=== PATIENT | female | born 1970 | race African-American/Black ===

== ENCOUNTER 2017-10-25 09:49 | Emergency (ER) | payer SELFPAY ==
[~2017-10-25] VITALS: Ht 154.9 cm; Wt 52.2 kg
--- NOTE | 2017-10-25 10:22 | NUR ---
A/OX4, C/O LOWER BACK PAIN, RADIATING TO ABDOMEN X 5 DAYS. NO TARUMA. VSS RR EVEN AND UNLABORED. PENDING ER MD HULL
[2017-10-25] MEDS ORDERED: IBUPROFEN 400 MG TABLET ONE (10:30)
[2017-10-25] MEDS ORDERED: IBUPROFEN 400 MG TABLET PO ONE (10:30)
[2017-10-25 13:14] VITALS: BP 147/85
--- NOTE | 2017-10-25 13:15 | NUR ---
Patient discharged to home in stable condition. Written and verbal after care instructions given. Patient verbalizes understanding of instruction.
== END 2017-10-25 13:15 | disposition home or self-care (01) ==
LOC: ER 09:54
DX: M54.5 Low back pain (principal)
CPT/HCPCS: 76856-TC; 84703-TC; A4606; Z7610